=== PATIENT | male | born 1960 | race Caucasian/White ===

== ENCOUNTER → 2021-02-25 08:31 | Outpatient (CLI) | payer BC, SELFPAY ==
[2021-02-25 19:48] LABS: SARS-CoV-2 RNA PCR Positive
== END ==
PROVIDERS: PCP Family Medicine; Visit Provider Nurse Practitioner Family
DX: U07.1 COVID-19 (principal)
CPT/HCPCS: C9803; U0003; U0005

== ENCOUNTER 2024-01-04 08:47 | Outpatient (CLI) | payer BC, SELFPAY | END 2024-01-04 08:48 | disposition home or self-care (01) | LOC: ANHLAB 08:49 | PROVIDERS: PCP Family Medicine; Visit Provider Physician Assistant | DX: Z01.83 Encounter for blood typing (principal) | CPT/HCPCS: 36415; 86850; 86900; 86901 ==